=== PATIENT | female | born 1975 | race Caucasian/White ===

== ENCOUNTER → 2016-11-17 | Outpatient (CLI) | payer MEDICAID | LOC: BRMIMAGING 11:39 | PROVIDERS: ATTEND Physician Assistant | DX: M25.521 Pain in right elbow (principal) | CPT/HCPCS: 73080-PO ==

== ENCOUNTER → 2017-03-14 | Outpatient (CLI) | payer MEDICAID | LOC: CIMAGING 12:18 | PROVIDERS: ATTEND Physician Assistant | DX: Z12.31 Encounter for screening mammogram for malignant neoplasm of breast (principal) | CPT/HCPCS: G0202 ==